=== PATIENT | male | born 1990 | race Caucasian/White ===

== ENCOUNTER 2018-02-12 14:13 | Day surgery (SDC) | payer OTHER ==
[2018-02-12] MEDS ORDERED: LIDOCAINE 4% SOLUTION 50 ML BTL (15:44)
[2018-02-12] MEDS ORDERED: MIDAZOLAM 1 MG/ML 2 ML INJ ×2 (16:27)
[2018-02-12] MEDS ORDERED: FENTAnyl 50 MCG/ML VIAL (16:27)
== END 2018-02-12 17:11 | disposition home or self-care (01) ==
LOC: GIL 14:13
DX: K29.50 Unspecified chronic gastritis without bleeding (principal)
CPT/HCPCS: 43239; 88305; 88312